=== PATIENT | female | born 1985 | race Caucasian/White ===

== ENCOUNTER → 2019-07-08 09:47 | Outpatient (REF) | payer SELFPAY ==
--- NOTE | 2019-07-08 09:10 | PAPFT_PTH ---
PATIENT: Hilaria Joaquin LOC: [facility] U#:[id number] AGE/SX: 40/F ROOM: RE07/08/[address]: JUAN Pruett : 1985 BED: DIS: SPEC #: [id number] RECD: 07/08/19 12:50 STATUS: SHANA REQ #: [id number] MIKE: 07/08/19 09:[address]: Martita Mcghee DEPT: [facility] Cytology RECD BY: Fanny Calzada ENTERED: 07/08/19 12:50 SP TYPE: PAPFT OTHR DR: Codie Leon Tissues: 1 - CX/ENDOCX FOR PAP SMEARS Procedures: PAP THIN PREP/[facility] Screening HPV DNA PROBE Comments: [id number]
== END ==
LOC: LBN 09:47
PROVIDERS: PCP Nurse Practitioner; Visit Provider Nurse Practitioner Family
DX: Z12.4 Encounter for screening for malignant neoplasm of cervix (principal); Z11.51 Encounter for screening for human papillomavirus (HPV)
CPT/HCPCS: 88142; 87624

== ENCOUNTER 2021-05-31 14:34 | Outpatient (REF) | payer OTHER, SELFPAY ==
[2021-05-31 21:06] LABS: Abs Immature Grans 0.01 10^3/uL (0.0-0.06); Absolute Basophil Count 0.06 10^3/uL (0.0-0.2); Absolute Eosinophil Count 0.22 10^3/uL (0.0-0.7); Absolute Lymphocyte Count 1.88 10^3/uL (1.2-3.4); Absolute Monocyte Count 0.55 10^3/uL (0.1-0.8); Absolute Neutrophil Count 4.37 10^3/uL (1.2-6.7); Basophils % 0.8; Eosinophils % 3.1; HCT 44.4 % (36.0-46.0); HGB 13.9 g/dL (11.2-15.7); Immature Grans % 0.1; Lymphocytes % 26.5; MCH 28.5 pg (27.0-33.0); MCHC 31.3 % (32.0-36.0); MPV 10.4 fL (8.0-11.0); Monocytes % 7.8; Neutrophils % 61.7; Nucleated RBC 0 %; Platelet Count 268 10^3/uL (130-400); RBC 4.88 10^6/uL (3.93-5.22); RDW 12.1 % (11.7-14.6); RDW-SD 40.9 fL; WBC 7.09 10^3/uL (4.4-10.8)
[2021-05-31 21:27] LABS: ALT 22 U/L (14-59); AST 16 U/L (15-37); Alkaline Phosphatase 68 U/L (46-116); Anion Gap 3.9 mmol/L (3-11); BUN 15 mg/dL (7-18); Bilirubin, Total 0.5 mg/dL (0.2-1.0); CO2 32.1 mmol/L (21.0-32.0); Chloride 106 mmol/L (98-107); Glucose 86 mg/dL (74-106); Lipase 124 U/L (73-393); Potassium 3.7 mmol/L (3.5-5.1); Sodium 142 mmol/L (136-145); Total Protein 7.8 g/dL (6.4-8.2)
[2021-05-31 21:34] LABS: CREATININE 0.9 mg/dL (0.55-1.02)
== END 2021-05-31 14:35 | disposition home or self-care (01) ==
LOC: NCHCN 14:34
PROVIDERS: PCP Nurse Practitioner; Visit Provider Physician Assistant Medical
DX: R10.9 Unspecified abdominal pain (principal)
CPT/HCPCS: 80053; 83690; 85025

== ENCOUNTER 2021-07-12 10:35 | Outpatient (REF) | payer OTHER, SELFPAY | END 2021-07-12 10:36 | disposition home or self-care (01) | LOC: LBN 10:35 | PROVIDERS: PCP Nurse Practitioner; Visit Provider Nurse Practitioner Family | DX: R30.0 Dysuria (principal) | CPT/HCPCS: 87086 ==

== ENCOUNTER → 2021-11-11 01:10 | Outpatient (CLI) | payer BC, SELFPAY ==
[2021-11-11] MEDS: Omnipaque 350 MG/ML 50 ML BTL IJ (08:52)
[2021-11-11] MEDS: Breeza Beverage 473 ML BTL 946 ML PO (08:52)
[2021-11-11] MEDS: Omnipaque 350 MG/ML 100 ML BTL IJ (09:53)
--- NOTE | 2021-11-11 09:55 | DI.CT_ITS ---
Exam(s) CT ABDOMEN W EXAM: CT ABDOMEN W CLINICAL HISTORY: RUQ ABD PAIN, R10.11. TECHNIQUE: Imaging Protocol: Axial computed tomography images with coronal and sagittal reformatted images were created and reviewed CONTRAST MATERIAL: Intravenous: Omnipaque 350 Contrast volume:100 ml Oral: no COMPARISON: [facility] OB ULTRASOUND from 08/31/2015 FINDINGS: ABDOMEN: Lung Bases: Normal where visualized. Liver: Normal density. No measurable mass. Gallbladder and biliary tract: No radiodense calculus or dilation. Pancreas: Normal density, no abnormal calcifications or inflammatory process. Spleen: Normal. Kidneys: Normal size, contour and axis. No radiodense stones or obstructive uropathy. No masses seen. Adrenal glands: No masses seen. Abdominal Aorta: Abdominal portion non-dilated. Impression: Unremarkable CT scan of the abdomen. RADIATION DOSE DELIVERED: 461.99mGy.cm Total DLP DATA REPOSITORY: All CT scans at this facility are submitted to the National Radiology Data Registry (NRDR) Dose Index Registry (DIR) with the [employer] ([employer]). RADIATION OPTIMIZATION: All CT scans at this facility use at least one of these dose optimization te chniques: automated exposure control; mA and/or kV adjustment per patient size (includes targeted exa ms where dose is matched to clinical indication); or iterative reconstruction.
== END ==
PROVIDERS: PCP Nurse Practitioner; Visit Provider Nurse Practitioner Family
DX: R10.11 Right upper quadrant pain (principal)
CPT/HCPCS: 74160; J3490; Q9967

== ENCOUNTER 2022-07-09 02:00 | Outpatient (CLI) | payer BC, SELFPAY ==
--- NOTE | 2022-07-09 08:03 | DI.RAD_ITS ---
Exam(s) XR KNEE RT 3V AP,LAT,CISCO EXAM: XR KNEE RT 3V AP,LAT,CISCO CLINICAL HISTORY: BILAT KNEE PAIN, M25.569 TECHNIQUE: COMPARISON: CR XR KNEE LT 3V AP,LAT,CISCO from 07/09/2022 FINDINGS: Three views were obtained. There may be slight narrowing of the cartilaginous joint spaces of the ti bial femoral joints. There is a moderate joint effusion noted on the lateral view. There appears to be some cortical roughening associated with femoral condyle seen only on the lateral view. No other bony abnormality seen. IMPRESSION: Question degenerative deformity of articular surface of distal femur, additional views or MR may be o btained if clinically indicated. RADIATION DOSE DELIVERED: Total DLP
--- NOTE | 2022-07-09 08:03 | DI.RAD_ITS ---
Exam(s) XR KNEE LT 3V AP,LAT,CISCO EXAM: XR KNEE LT 3V AP,LAT,CISCO CLINICAL HISTORY: BILAT KNEE PAIN, M25.569 TECHNIQUE: COMPARISON: No exams were available for comparison FINDINGS: Three views were obtained. There appears to be mild narrowing of the cartilaginous joint spaces of t he medial tibiofemoral joints. Mild marginal osteophytes are noted involving the tibiofemoral joints and patellofemoral joint. There is an apparent moderate joint effusion period IMPRESSION: DJD and joint effusion as described above. RADIATION DOSE DELIVERED: Total DLP
== END 2022-07-09 02:20 ==
LOC: DI 02:00
PROVIDERS: PCP Nurse Practitioner; Visit Provider Nurse Practitioner Family
DX: M17.0 Bilateral primary osteoarthritis of knee (principal); M25.462 Effusion, left knee
CPT/HCPCS: 73562

== ENCOUNTER 2022-08-05 17:52 | Outpatient (REF) | payer BC, SELFPAY ==
[2022-08-05 17:57] LABS: ESR 40 mm/hr (0-20)
[2022-08-06 19:08] LABS: Rheumatoid Factor 9.7 IU/mL (<12.0)
[2022-08-07 10:06] LABS: Cyclic Citrullinated Peptide <2.5 U/mL (<5.0)
== END 2022-08-05 17:53 | disposition home or self-care (01) ==
LOC: NCHCN 17:52
PROVIDERS: PCP Nurse Practitioner Family; Visit Provider Nurse Practitioner Family
DX: M25.561 Pain in right knee (principal); M25.562 Pain in left knee; M06.072 Rheumatoid arthritis without rheumatoid factor, left ankle and foot
CPT/HCPCS: 85652; 86200; 86140; 86431

== ENCOUNTER 2023-08-28 02:29 | Outpatient (CLI) | payer SELFPAY ==
[2023-08-28 12:54] LABS: Abs Immature Grans 0.01 10^3/uL (0.0-0.06); Absolute Basophil Count 0.06 10^3/uL (0.0-0.2); Absolute Eosinophil Count 0.23 10^3/uL (0.0-0.7); Absolute Lymphocyte Count 1.33 10^3/uL (1.2-3.4); Absolute Monocyte Count 0.41 10^3/uL (0.1-0.8); Basophils % 0.9; Eosinophils % 3.5; HCT 41.1 % (36.0-46.0); HGB 13.6 g/dL (11.2-15.7); Immature Grans % 0.2; Lymphocytes % 20.3; MCH 30.1 pg (27.0-33.0); MCHC 33.1 % (32.0-36.0); MCV 91 fL (80-95); MPV 9.3 fL (8.0-11.0); Monocytes % 6.3; Neutrophils % 68.8; Platelet Count 282 10^3/uL (130-400); RBC 4.52 10^6/uL (3.93-5.22); RDW 13.4 % (11.7-14.6); RDW-SD 44.4 fL; WBC 6.54 10^3/uL (4.4-10.8)
[2023-08-28 13:46] LABS: ALT 22 U/L (14-59); AST 17 U/L (15-37); Albumin 3.6 g/dL (3.4-5.0); Alkaline Phosphatase 59 U/L (46-116); Anion Gap 6.5 mmol/L (3-11); BUN 10 mg/dL (7-18); Bilirubin, Total 0.5 mg/dL (0.2-1.0); CO2 29.5 mmol/L (21.0-32.0); CREATININE 0.9 mg/dL (0.55-1.02); Calcium 9.1 mg/dL (8.5-10.1); Chloride 104 mmol/L (98-107); Estimated GFR 84.97 (mL/min/1.73m2); Glucose 101 mg/dL (74-106); Potassium 3.4 mmol/L (3.5-5.1); Sodium 140 mmol/L (136-145)
== END 2023-08-28 02:30 | disposition home or self-care (01) ==
PROVIDERS: PCP Nurse Practitioner Family; Visit Provider Internal Medicine
DX: Z79.899 Other long term (current) drug therapy
CPT/HCPCS: 36415; 80053; 85025

== ENCOUNTER 2024-10-04 09:57 | Outpatient (CLI) | payer SELFPAY ==
[2024-10-04 09:59] LABS: Abs Immature Grans 0.02 10^3/uL (0.0-0.06); Absolute Basophil Count 0.05 10^3/uL (0.0-0.2); Absolute Eosinophil Count 0.13 10^3/uL (0.0-0.7); Absolute Lymphocyte Count 1.31 10^3/uL (1.2-3.4); Absolute Monocyte Count 0.39 10^3/uL (0.1-0.8); Absolute Neutrophil Count 3.04 10^3/uL (1.2-6.7); Eosinophils % 2.6 %; HCT 41.3 % (36.0-46.0); HGB 13.4 g/dL (11.2-15.7); Immature Grans % 0.4 %; Lymphocytes % 26.5 %; MCH 29.9 pg (27.0-33.0); MCHC 32.4 % (32.0-36.0); MCV 92 fL (80-95); MPV 9.5 fL (8.0-11.0); Monocytes % 7.9 %; Neutrophils % 61.6 %; Platelet Count 255 10^3/uL (130-400); RBC 4.48 10^6/uL (3.93-5.22); RDW 13.2 % (11.7-14.6); RDW-SD 44.1 fL; WBC 4.94 10^3/uL (4.4-10.8)
[2024-10-04 10:42] LABS: ALT 18 U/L (14-59); AST 15 U/L (15-37); Albumin 3.6 g/dL (3.4-5.0); Alkaline Phosphatase 62 U/L (46-116); BUN 7 mg/dL (7-18); Bilirubin, Total 0.38 mg/dL (0.2-1.0); CREATININE 0.9 mg/dL (0.55-1.02); Chloride 107 mmol/L (98-107); Estimated GFR 84.44 (mL/min/1.73m2); Glucose 85 mg/dL (74-106); Potassium 3.8 mmol/L (3.5-5.1); Sodium 142 mmol/L (136-145); Total Protein 7.7 g/dL (6.4-8.2)
== END 2024-10-04 09:58 | disposition home or self-care (01) ==
LOC: LBO 10:01
PROVIDERS: Visit Provider Internal Medicine
DX: Z79.899 Other long term (current) drug therapy (principal)
CPT/HCPCS: 36415; 80053; 85025

== ENCOUNTER 2024-11-14 10:56 | Outpatient (REF) | payer BC, SELFPAY ==
[2024-11-14 16:55] LABS: Anion Gap 7.5 mmol/L (3-11); BUN 10 mg/dL (7-18); CO2 28.5 mmol/L (21.0-32.0); CREATININE 0.8 mg/dL (0.55-1.02); Calcium 9.2 mg/dL (8.5-10.1); Calculated LDL 97 mg/dL (<100); Chloride 108 mmol/L (98-107); Cholesterol 170 mg/dL (<200); Estimated GFR 97.26 (mL/min/1.73m2); Glucose 85 mg/dL (74-106); HDL Cholesterol 58 mg/dL (>or=50); Potassium 4.2 mmol/L (3.5-5.1); Sodium 144 mmol/L (136-145); Triglyceride 76 mg/dL (<150)
== END 2024-11-14 10:57 | disposition home or self-care (01) ==
LOC: NCHCN 10:56
PROVIDERS: Visit Provider Student in an Organized Health Care Education/Training Program
DX: Z13.220 Encounter for screening for lipoid disorders (principal); Z13.1 Encounter for screening for diabetes mellitus
CPT/HCPCS: 80048; 80061

== ENCOUNTER 2025-04-13 11:33 | Outpatient (CLI) | payer BC, SELFPAY ==
[2025-04-13 13:15] LABS: Abs Immature Grans 0.01 10^3/uL (0.0-0.06); HCT 40.4 % (36.0-46.0); HGB 13.4 g/dL (11.2-15.7); Immature Grans % 0.2 %; MCH 30.4 pg (27.0-33.0); MCHC 33.2 % (32.0-36.0); MCV 92 fL (80-95); MPV 9.4 fL (8.0-11.0); Platelet Count 245 10^3/uL (130-400); RBC 4.41 10^6/uL (3.93-5.22); RDW 12.6 % (11.7-14.6); RDW-SD 42.4 fL; WBC 6.06 10^3/uL (4.4-10.8)
[2025-04-13 13:36] LABS: ALT 22 U/L (14-59); AST 21 U/L (15-37); Albumin 3.9 g/dL (3.4-5.0); Alkaline Phosphatase 53 U/L (46-116); Anion Gap 7.1 mmol/L (3-11); BUN 11 mg/dL (7-18); Bilirubin, Total 0.6 mg/dL (0.2-1.0); CO2 28.9 mmol/L (21.0-32.0); Calcium 9.1 mg/dL (8.5-10.1); Chloride 103 mmol/L (98-107); Estimated GFR 84.44 (mL/min/1.73m2); Glucose 124 mg/dL (74-106); Potassium 3.7 mmol/L (3.5-5.1); Sodium 139 mmol/L (136-145); Total Protein 7.8 g/dL (6.4-8.2)
== END 2025-04-13 11:34 | disposition home or self-care (01) ==
LOC: LBO 11:33
PROVIDERS: Visit Provider Internal Medicine
DX: Z79.899 Other long term (current) drug therapy (principal)
CPT/HCPCS: 36415; 80053; 85025

== ENCOUNTER 2025-05-01 09:40 | Outpatient (REF) | payer BC, SELFPAY ==
--- NOTE | 2025-05-01 09:00 | PAPFT_PTH ---
PATIENT: Hilaria Joaquin LOC: [facility] U#:[id number] AGE/SX: 39/F ROOM: RE05/01/[address]: Li Higgins NP : 1985 BED: DIS: 05/01/2025 SPEC #: [id number] RECD: 05/01/25 12:50 STATUS: SHANA REQ #: [id number] MIKE: 05/01/25 09:[address]: Gisela CHEEK,Li [facility] Cytology RECD BY: Fanny Calzada ENTERED: 05/01/25 12:50 SP TYPE: PAPFT OT DR: Unknown,Unknown Tissues: 1 - CX/ENDOCX FOR PAP SMEARS Procedures: PAP THIN PREP/[facility] Screening HPV DNA PROBE Comments: [id number] (HPV 16 & 18/45)
== END 2025-05-01 09:41 | disposition home or self-care (01) ==
LOC: LBN 09:40
PROVIDERS: Visit Provider Nurse Practitioner Women's Health
DX: Z12.4 Encounter for screening for malignant neoplasm of cervix (principal)
CPT/HCPCS: 88142; 87624